=== PATIENT | female | born 1990 | race Caucasian/White ===

== ENCOUNTER 2022-07-24 18:53 | Emergency (ER) | payer SELFPAY ==
[2022-07-24 20:13] LABS: ESTIMATED GFR 102 mL/min (>60)
== END 2022-07-24 23:13 | disposition home or self-care (01) ==
LOC: JP.ED 18:53
DX: N83.201 Unspecified ovarian cyst, right side (principal); N83.202 Unspecified ovarian cyst, left side; Z88.8 Allergy status to other drugs, medicaments and biological substances
CPT/HCPCS: 36415; 74176; 76830; 76856; 80053; 81001; 81025; 85025; 99284